=== PATIENT | male | born 1995 | race Caucasian/White ===

== ENCOUNTER 2024-08-03 16:04 | Emergency (ER) | payer MEDICAID ==
[~2024-08-03] VITALS: Ht 177.8 cm; Wt 120.0 kg
[2024-08-03 16:06] VITALS: O2SAT 99
[2024-08-03] MEDS: LIDOCAINE HCL/EPINEPHRINE 1%-EPI 1:100,000 20ML VIAL INFIL ONE (17:15)
[2024-08-03] MEDS: TETANUS, DIPHTHERIA, PERTUSSIS VAC/PF 0.5ML (>10YR OLD) IM ONE (17:30)
[2024-08-03 17:36] LABS: BASOPHILS % 0.5 % (0.0-2.0); EOSINOPHILS % 2.7 % (0.0-5.0); HEMATOCRIT. 40.6 % (42.0-52.0); HEMOGLOBIN. 14.2 g/dL (14.0-18.0); LYMPHOCYTES % 31.6 % (20.0-50.0); MEAN CORPUSCULAR HEMOGLOBIN 32.3 pg (28.0-32.0); MEAN CORPUSCULAR VOLUME 92.3 fL (80.0-94.0); MEAN PLATELET VOLUME 7.9 fl (7.4-10.4); MONOCYTES % 9.3 % (2.0-8.0); NEUTROPHILS % 55.9 % (40.0-76.0); PLATELET 236 x1000/uL (130-400); WHITE BLOOD COUNT 7.6 x1000/uL (4.5-11.0)
[2024-08-03 17:40] LABS: CHLORIDE 105 mEq/L (98-107); POTASSIUM 3.9 mEq/L (3.5-5.1); SODIUM 138 mEq/L (136-145)
[2024-08-03 17:41] LABS: CARBON DIOXIDE 27 mEq/L (21-32)
[2024-08-03 17:42] LABS: CALCIUM 9.7 mg/dL (8.7-10.4)
[2024-08-03 17:46] LABS: GLUCOSE 118 mg/dL (70-105); UREA NITROGEN BLOOD 9 mg/dL (9-23)
[2024-08-03 17:48] LABS: ACETAMINOPHEN < 2 ug/mL (10-30)
[2024-08-03] MEDS: BACITRACIN ZINC OINT UDPKT TOP ONE (17:57)
[2024-08-03 17:58] LABS: ETHANOL BLOOD < 10 mg/dL (<10)
[2024-08-03] MEDS: QUETIAPINE FUMARATE 50MG TABLET PO SCH (18:58)
[2024-08-03 21:16] LABS: *AMPHETAMINES SCREEN URINE PRESUMPTIVE POSITIVE (NEGATIVE); *BARBITURATES SCREEN URINE NEGATIVE (NEGATIVE); *BENZODIAZEPINES SCREEN URINE NEGATIVE (NEGATIVE); *COCAINE SCREEN URINE NEGATIVE (NEGATIVE); CANNABINOID URINE SCREEN NEGATIVE (NEGATIVE); ECSTASY MDMA SCREEN URINE CONF.TEST INDICATED (NEGATIVE); METHADONE URINE SCREEN NEGATIVE (NEGATIVE); OPIATES URINE SCREEN NEGATIVE (NEGATIVE); PHENCYCLIDINE URINE SCREEN NEGATIVE (NEGATIVE)
[2024-08-04] MEDS: QUETIAPINE FUMARATE 50MG TABLET PO SCH (22:09)
[2024-08-05 12:50] VITALS: BP 137/65; PULSE 89; RESP 20; TEMP 36.66960; O2SAT 99
== END 2024-08-05 13:42 ==
LOC: EDBD 16:04 → ER 16:04
DX: S61.512A Laceration without foreign body of left wrist, initial encounter (principal); Z20.822 Contact with and (suspected) exposure to COVID-19; W45.8XXA Other foreign body or object entering through skin, initial encounter; Y93.89 Activity, other specified; Y92.89 Other specified places as the place of occurrence of the external cause; Y99.8 Other external cause status
CPT/HCPCS: 80305; 80048; 80307; 80329; 80320; 85025; 36415; 90715; 90471; 99285; 87426; Z7610 ×4; G0480